=== PATIENT | male | born 1940 ===

== ENCOUNTER 2020-10-01 07:41 | Outpatient (CLI) | payer OTHER | END 2020-10-01 09:49 | disposition home or self-care (01) | LOC: SONOGRAMA 07:41 | PROVIDERS: ATTEND Pathology Anatomic Pathology & Clinical Pathology | DX: E04.1 Nontoxic single thyroid nodule (principal) ==

== ENCOUNTER 2020-11-09 07:48 | Outpatient (CLI) | payer OTHER | END 2020-11-09 07:53 | disposition home or self-care (01) | LOC: SONOGRAMA 07:48 | PROVIDERS: ATTEND Pathology Anatomic Pathology & Clinical Pathology | DX: E04.1 Nontoxic single thyroid nodule (principal) ==